=== PATIENT | female | born 1955 | race American Indian/Alaskan Native ===

== ENCOUNTER 2018-11-30 14:47 | Emergency (ER) | payer MEDICARE ==
--- NOTE | 2018-11-30 14:58 | Emergency Department Report ---
Blank Doc - Documentation Documentation: 63-year-old female that presents with acute on chronic lower back pain with ra diation to left leg. Denies any new injuries or trauma. This initial assessment/diagnostic orders/clinical plan/treatment(s) is/are subject to change based on patient's health status, clinical progression and re- assessment by fellow clinical providers in the ED. Further treatment and workup at subsequent clinical providers discretion. Patient/guardians urged not to elope from the ED as their condition may be serious if not clinically assessed and managed. Initial orders include: 1- Patient sent to [facility] for further evaluation and treatment
[2018-11-30 15:01] VITALS: BP 170/89
[2018-11-30] MEDS ORDERED: FLEXERIL PO ONE (17:50)
[2018-11-30] MEDS ORDERED: NORCO 5/325 PO ONE (17:50)
[2018-11-30] MEDS ORDERED: DECADRON IM ONE (17:50)
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
== END 2018-11-30 18:15 | disposition home or self-care (01) ==
LOC: ED 14:47
DX: M54.42 Lumbago with sciatica, left side (principal); M54.41 Lumbago with sciatica, right side
CPT/HCPCS: 96372; 99282; J1100

== ENCOUNTER 2020-04-16 10:49 | Emergency (ER) | payer MEDICARE ==
[2020-04-16 11:31] VITALS: BP 146/78
--- NOTE | 2020-04-16 11:40 | Emergency Department Report ---
Chief Complaint: Extremity Problem,Nontraumatic Stated Complaint: BACK/LEG PAIN Time Seen by Provider: 04/16/20 11:37 - HPI History of Present Illness: Patient is a 65-year-old female presents emergency room for chronic back pain which she has had since 2019. Patient has left-sided back pain which radiates down the posterior left leg. She went to an orthopedic doctor yesterday and reports that she had a shot but continues to have pain. She was supposed to go follow back up with the orthopedic doctor today after receiving the shot. She did not follow-up with orthopedic and instead reported to the emergency room. She denies any acute fall or injury. She denies any numbness, weakness, bowel or bladder incontinence, saddle numbness, urinary symptoms, fever, nausea, vomiting, diarrhea. She denies any medication allergies. Vitals are stable On exam: Non toxic appearing, no acute distress atraumatic, normocephalic normal appearance of the eyes, EOMI, no periorbital edema or ecchymosis moist mucus membranes regular heart rate and rhythm, no gallops, no rubs, no murmurs breath sounds are clear bilaterally, no w/r/r Left-sided lumbar paraspinal muscular tenderness palpation, no midline C-spine, T-spine, L-spine tenderness outpatient, no step-offs, no deformities, no focal neuro deficits, 5 out of 5 strength in the bilateral upper extremities and lower extremities, normal gait, sensation intact throughout A&O x4, no focal neuro deficit skin is warm, dry, intact Patient is presenting for chronic pain from sciatica She is currently under the care of an orthopedic doctor and last saw them yesterday and is supposed to see them again today She has no red flag warning signs of back pain, no trauma, no unexplained weight loss, no fever, no IV drug use, no steroid use, no history of cancer, no neuro deficits Advised patient that she needs to continue to see her orthopedic doctor for this chronic condition Discussed with patient that we do not prescribe pain medications for chronic conditions that this would need to all be managed by her orthopedic doctor and it is very important that this condition is managed by one person She verbalized understanding Discussed very strict return precautions in detail with patient and red flag warning signs of back pain Medical screening examination performed and there is no threat to life or limb at this time - Exam Vital Signs: Vital Signs 04/16/20 11:23 Temperature 98.0 F Pulse Rate 92 H Respiratory 20 Rate Blood Pressure 146/78 O2 Sat by Pulse 98 Oximetry MSE screening note: Focused history and physical exam performed. ED Disposition for MSE Clinical Impression: Chronic back pain Qualifiers: Back pain location: low back pain Back pain laterality: left Sciatica presence: with sciatica Sciatica laterality: sciatica of left side Qualified Code(s): M54.42 - Lumbago with sciatica, left side; G89.29 - Other chronic pain Disposition: MED SCREENING EXAM-LEFT Is pt being admited?: No Does the pt Need Aspirin: No Condition: Stable Instructions: Chronic Back Pain, [id number], Sciatica Additional Instructions: Please follow-up with your doctor as you were instructed to do so today by your doctor. May use ice pack, heating pad, rest, Epsom salt bath, [place] balm ointm ent. Please do stretching for sciatica. Return to emergency room for any new or worsening symptoms. Referrals: your, orthopedic [Other] - [facility] Time of Disposition: 11:40 Print Language: MONGOLIAN
== END 2020-04-16 12:00 | disposition left against medical advice (07) ==
LOC: ED 10:49
DX: M54.5 Low back pain (principal); Z53.21 Procedure and treatment not carried out due to patient leaving prior to being seen by health care provider